=== PATIENT | female | born 1960 | race Caucasian/White ===

== ENCOUNTER 2019-12-03 10:58 | Outpatient (CLI) | payer OTHER | END 2019-12-03 11:09 | disposition home or self-care (01) | LOC: RAD 10:58 | PROVIDERS: ATTEND General Practice | DX: M25.562 Pain in left knee (principal); M25.561 Pain in right knee; M41.85 Other forms of scoliosis, thoracolumbar region ==

== ENCOUNTER 2019-12-03 12:39 | Outpatient (CLI) | payer OTHER | END 2019-12-03 12:54 | disposition home or self-care (01) | LOC: NUCLEAR 12:39 | DX: M81.0 Age-related osteoporosis without current pathological fracture (principal); Z13.820 Encounter for screening for osteoporosis ==

== ENCOUNTER 2019-12-16 07:16 | Outpatient (CLI) | payer OTHER | END 2019-12-16 07:48 | disposition home or self-care (01) | LOC: SONOGRAMA 07:16 | DX: R10.84 Generalized abdominal pain (principal); M81.0 Age-related osteoporosis without current pathological fracture ==